=== PATIENT | female | born 2000 | race Caucasian/White ===

== ENCOUNTER → 2025-10-13 11:28 | Outpatient (REF) | payer BC, SELFPAY | LOC: PNTC 11:28 | PROVIDERS: ATTENDING PHYSICIAN Advanced Practice Midwife | DX: O48.0 Post-term pregnancy (principal) | CPT/HCPCS: 59025; 76815 ==

== ENCOUNTER 2025-10-14 19:37 | Inpatient (IN) | payer BC, SELFPAY ==
[2025-10-14 20:00] VITALS: BP 131/92; BMI 37.6
[2025-10-14] MEDS: LR 1000 IV ×2 (20:35→23:40)
[2025-10-14] MEDS: TYLENOL 975 MG PO (20:36)
[2025-10-14] MEDS: BICITRA 30 ML PO (20:37)
[2025-10-14] MEDS: GENTAMICIN 60 MG IV (20:44)
[2025-10-14 20:48] LABS: Hematocrit 34.1 % (37.0-47.0); Hemoglobin 11.3 g/dL (12.0-16.0); Mean Corp Hgb Conc. 33.1 g/dL (33.0-37.0); Mean Corpuscular Volume 74.3 fL (81.0-99.0); Nucleated Red Blood Cells % 0 %; Platelet Count 303 10^3/uL (130-400); Red Cell Dist. Width 13.3 % (11.5-14.5)
[2025-10-14] MEDS: ZITHROMAX INFUSION 250 IV (20:53)
[2025-10-14] MEDS: CLEOCIN 50 IV (20:53)
[2025-10-14] MEDS: PITOCIN 30 UNITS/NSS 500 ML IV ×2 (20:58→22:05)
[2025-10-14 21:05] LABS: ALT (SGPT) 11 U/L (0-35); AST (SGOT) 16 U/L (14-36); Albumin 3.9 g/dl (3.5-5.0); Alkaline Phosphatase 136 U/L (38-126); Blood Urea Nitrogen 10 mg/dl (7-17); Calcium 10.2 mg/dl (8.4-10.2); Carbon Dioxide 21 mmol/L (22-30); Chloride 103 mmol/L (98-107); Estimated Creatinine Clearance 119 ml/min; Glucose 89 mg/dl (70-99); Potassium 4.3 mmol/L (3.5-5.1); Sodium 135 mmol/L (135-145); Total Protein 7.1 g/dl (6.3-8.2); eGFR > 60.00
[2025-10-14] MEDS: METHERGINE INJECTION 0.2 MG IM (21:06)
[2025-10-14 21:09] LABS: Cord ABG Comment CORD BLOOD
[2025-10-14] MEDS: HEMABATE 250 MCG IM (21:10)
[2025-10-14 21:11] LABS: B.E. Cord ABG 1.0 mMOL/L; HCO3 Cord ABG 28.9 mmol/L; O2 Saturation % Cord ABG 15.7 %; PCO2 Cord ABG 56 mmHg; PO2 Cord ABG 10 mmHg; pH Cord ABG 7.32
[2025-10-14 21:13] LABS: B.E. Cord ABG -2.0 mMOL/L; HCO3 Cord ABG 22.4 mmol/L; O2 Saturation % Cord ABG 50.5 %; PCO2 Cord ABG 37 mmHg; PO2 Cord ABG 24 mmHg; pH Cord ABG 7.39
[2025-10-14] MEDS: TRANEXAMIC ACID 100 IV (21:16)
[2025-10-14] MEDS: CYTOTEC 800 MCG SL (21:20)
[2025-10-14] MEDS: PRENATAL PLUS PO (23:00)
[2025-10-15] MEDS: TORADOL 15 MG IV ×4 (00:14→17:14)
[2025-10-15] MEDS: REGLAN 10 MG IV (00:24)
--- NOTE | 2025-10-15 07:41 | W.PN.ANS.POP ---
Anesthesia Post Operative
- Anesthesia Post Op Note
Vital Signs Stable-See Nursing Note: Yes
Airway Patent: Yes
Adequate Pain Control: Yes
Change in Mental Status: No
Current Postoperative Nausea & Vomiting: No
Anesthesia Complications: No
General Anesthetic Recall: No
Unplanned Admission: No
Post Op Hydration Adequate: Yes
[2025-10-15] MEDS: COLACE 100 MG PO ×2 (08:31→20:46)
[2025-10-15 08:58] LABS: Hematocrit 28.3 % (37.0-47.0); Hemoglobin 9.4 g/dL (12.0-16.0); Mean Corp Hgb Conc. 33.2 g/dL (33.0-37.0); Mean Corpuscular Volume 74.1 fL (81.0-99.0); Platelet Count 274 10^3/uL (130-400); Red Cell Dist. Width 13.3 % (11.5-14.5)
[2025-10-15] MEDS: FEOSOL 325 MG PO (12:22)
[2025-10-15 16:34] LABS: Syphilis/T. pallidum Ab Reflex Negative (Negative)
[2025-10-15] MEDS: PRENATAL PLUS 1 TABLET PO (20:46)
[2025-10-15] MEDS: TYLENOL 650 MG PO (22:28)
[2025-10-16] MEDS: MOTRIN 600 MG PO ×3 (00:49→13:16)
[2025-10-16] MEDS: TYLENOL 650 MG PO ×3 (04:03→13:16)
[2025-10-16] MEDS: COLACE 100 MG PO (08:14)
[2025-10-16] MEDS: FEOSOL 325 MG PO (08:15)
[2025-10-16] MEDS: MYLICON 80 MG PO (11:35)
== END 2025-10-16 15:20 | disposition home or self-care (01) | DRG 788 ==
LOC: LDRP 19:37
PROVIDERS: ADMITTING PHYSICIAN Obstetrics & Gynecology
PROC: 10D00Z1 Extraction of Products of Conception, Low, Open Approach (ICD-10-PCS; 2025-10-14)
DX: O48.0 Post-term pregnancy (principal); Z3A.40 40 weeks gestation of pregnancy; Z37.0 Single live birth; O76 Abnormality in fetal heart rate and rhythm complicating labor and delivery; O62.2 Other uterine inertia
CPT/HCPCS: 36415; 80053; 82570; 82803; 84156; 85025; 85027; 86780; 86850; 86900; 86901; 87070; 88307